=== PATIENT | male | born 1965 | race Caucasian/White ===

== ENCOUNTER 2018-06-04 09:19 | Day surgery (SDC) | payer OTHER ==
[2018-05-31 12:13] VITALS: BMI 35.2
[2018-06-04 09:49] VITALS: TEMP 98.2
[2018-06-04] MEDS: LACTATED RINGERS 1,000 ML IV SCH ×2 (09:52→10:46)
[2018-06-04] MEDS ORDERED: PROPOFOL 10 MG/ML 20 ML VIAL IV ONE (10:49)
[2018-06-04] MEDS ORDERED: LIDOCAINE 1% INJ 10MG/ML (20 ML MDV) ONE (10:49)
[2018-06-04 11:22] VITALS: RESP 18
--- NOTE | 2018-06-04 11:25 | P.PCN ---
Date of Procedure: 06/04/18 Procedure(s) Performed: Procedure: Total colonoscopy. Preoperative diagnosis: Screening for neoplasia, patient has history of polyps and family history of colon cancer. Postoperative diagnosis: Exam within normal limits. Preparation: HalfLytely prep. Sedation: Was provided by anesthesia. Brief clinical history: The patient is a 53-year-old male who is scheduled for this evaluation for screening for neoplasia because of history of polyps and family history of colon cancer in his father. His last colonoscopy was in November 2014 and at that time two tubulovillous adenomas were snared. The patient has no abdominal complaints, bleeding or anemia. Procedure: With the patient on his left lateral decubitus position and after informed consent and adequate sedation, the perianal area was inspected and it did not show any fissures or fistulas. There were no masses felt on digital rectal examination. The Olympus CFQ 160L video colonoscope was then inserted in the rectum in the usual fashion and advanced to the cecum. The mucosa appeared healthy. No polyps or tumors were seen or any obvious diverticular disease or other pathology. The patient tolerated the procedure well. Plan: The patient was reassured. He will follow up with you as planned and I recommended repeat exam in 5 years.
[2018-06-04 11:43] VITALS: BP 167/80; PULSE 83
== END 2018-06-04 11:53 | disposition home or self-care (01) ==
LOC: ORWHC2ENDO 09:19
DX: Z12.11 Encounter for screening for malignant neoplasm of colon (principal); Z86.010 Personal history of colon polyps; Z80.0 Family history of malignant neoplasm of digestive organs; G89.29 Other chronic pain; M54.9 Dorsalgia, unspecified; Z79.899 Other long term (current) drug therapy; Z88.5 Allergy status to narcotic agent
CPT/HCPCS: J2001; J2704; G0105; 45378

== ENCOUNTER 2019-03-21 02:30 | Emergency (ER) | payer OTHER ==
[2019-03-21] MEDS ORDERED: SODIUM CHLORIDE 0.9% 1,000 ML IV STA (02:58)
--- NOTE | 2019-03-21 04:34 | ED ---
General Adult HPI - General Source: patient, EMS, RN notes reviewed, old records reviewed Mode of arrival: EMS Limitations: no limitations <Carlos Alberto Rich - Last Filed: 03/21/19 04:33> <Jose Zheng - Last Filed: 03/21/19 06:13> - General Chief complaint: Overdose Stated complaint: Overdose Time Seen by Provider: 03/21/19 02:49 - History of Present Illness Initial comments: 53-year-old male patient presents to ED via EMS. reports that she came into the room to find patient on the ground, unresponsive, breathing. reports that she then called EMS and performed CPR patient for 15 minutes. Upon EMS arrival seen patient was administered Narcan, in which he became responsive, alert and oriented 3. Patient does admit to taking oral morphine. Denies any other complaints. Systemic: Pt denies fatigue, fever/chills, rash. Pt denies weakness, night sweats, weight loss. Neuro: Pt denies headache, visual disturbances, syncope or pre-syncope. HEENT: Pt denies ocular discharge or irritation, otalgia, rhinorrhea, pharyngitis or notable lymphadenopathy. Cardiopulmonary: Pt denies chest pain, SOB, heart palpitations, dyspnea on exertion. Abdominal/GI: Pt denies abdominal pain, n/v/d. : Pt denies dysuria, burning w/ urination, frequency/urgency. Denies new onset urinary or bowel incontinence. MSK: Pt denies myalgia, loss of strength or function in extremities. Neuro: Pt denies new onset weakness, paresthesias. (Carlos Alberto Rich) - Related Data Home Medications Medication Instructions Recorded Confirmed DULoxetine HCL [Cymbalta] 30 mg PO DAILY 05/31/18 06/04/18 Gabapentin [Neurontin] 600 mg PO BID 05/31/18 06/04/18 Glucosamine/Chondr Henriquez A Sod [Osteo 1 each PO DAILY 05/31/18 06/04/18 Bi-Flex Caplet] Allergies Allergy/AdvReac Type Severity Reaction Status Date / Time morphine [From Embeda] Allergy Rash/Hives Verified 06/04/18 09:46 naltrexone [From Embeda] Allergy Rash/Hives Verified 06/04/18 09:46 Review of Systems ROS Other: All systems not noted in ROS Statement are negative. <Carlos Alberto Rich - Last Filed: 03/21/19 04:33> ROS Other: All systems not noted in ROS Statement are negative. <Jose Zheng - Last Filed: 03/21/19 06:13> ROS Statement: Those systems with pertinent positive or pertinent negative responses have been documented in the HPI. Past Medical History Past Medical History: Musculoskeletal Disorder Additional Past Medical History / Comment(s): Chronic back pain r/t trauma, hx. colon polyps History of Any Multi-Drug Resistant Organisms: None Reported Past Surgical History: Orthopedic Surgery, Tonsillectomy Additional Past Surgical History / Comment(s): BILAT KNEE SX, colonoscopy,. REATTACHMENT OF LT INDEX FINGER Past Anesthesia/Blood Transfusion Reactions: No Reported Reaction Smoking Status: Former smoker - Past Family History Father Family Medical History: Cancer Additional Family Medical History / Comment(s): colon Mother Family Medical History: Cancer <Carlos Alberto Rich - Last Filed: 03/21/19 04:33> General Exam Limitations: no limitations <Carlos Alberto Rich - Last Filed: 03/21/19 04:33> - General Exam Comments Initial Comments: Constitutional: NAD, AOX3, Pt has pleasant affect. HEENT: NC/AT, trachea midline, neck supple, no lymphadenopathy. Posterior pharynx non erythematous, without exudates. External ears appear normal, without discharge. Mucous membranes moist. Eyes PERRLA, EOM intact. There is no scleral icterus. No pallor noted. Cardiopulmonary: RRR, no murmurs, rubs or gallops, no JVD noted. Lungs CTAB in anterior and posterior rosales. No peripheral edema. Abdominal exam: Abdomen soft and non-distended. Abdomen non-tender to palpation in all 4 quadrants. Bowel sounds active in LLQ. No hepatosplenomegaly. No ecchymosis Neuro: CN II-XII grossly intact. No nuchal rigidity. No raccon eyes, no priest sign, no hemotympanum. No cervical spinal tenderness. MSK: No posterior calf tenderness bilaterally, homans sign negative bilaterally. Posterior tibialis and radial pulse +2 bilaterally. Sensation intact in upper and lower extremities. Full active ROM in upper and lower extremities, 5/5 stregnth. (Carlos Alberto Rich) Course Vital Signs 03/21/19 03/21/1903/21/19 02:40 04:39 04:41 Temperature 98 F Pulse Rate 94 78 Respiratory 16 12 12 Rate Blood Pressure 104/63 107/49 O2 Sat by Pulse 95 88 L Oximetry Medical Decision Making <Carlos Alberto Rich - Last Filed: 03/21/19 04:33> <Jose Zheng - Last Filed: 03/21/19 06:13> - Medical Decision Making At this time patient is refusing all further evaluations. PT will be signed out to attending physician Dr. Brown. (Carlos Alberto Rich) I saw this patient in conjunction with the physician executive personal assistant. I performed independent history and physical exam. Agree with case management. (Jose Zheng) Disposition <Carlos Alberto Rich - Last Filed: 03/21/19 04:33> Is patient prescribed a controlled substance at d/c from ED?: No <Jose Zheng - Last Filed: 03/21/19 06:13> Clinical Impression: Drug overdose Disposition: HOME SELF-CARE Condition: Fair Instructions (If sedation given, give patient instructions): Prescription Opioid Overdose (ED) Referrals: Trever Bond DO [Primary Care Provider] - 1-2 days
[2019-03-21] MEDS ORDERED: NALOXONE 0.4 MG/ML 1 ML VIAL IV STA (04:35)
[2019-03-21 05:00] VITALS: TEMP 98
[2019-03-21 06:17] VITALS: BP 102/57; PULSE 81; RESP 20
== END 2019-03-21 06:15 | disposition home or self-care (01) ==
LOC: EC 02:30
DX: T40.2X1A Poisoning by other opioids, accidental (unintentional), initial encounter (principal); G89.29 Other chronic pain; Z87.891 Personal history of nicotine dependence; Z88.5 Allergy status to narcotic agent; Z88.8 Allergy status to other drugs, medicaments and biological substances; Z79.899 Other long term (current) drug therapy; Z53.20 Procedure and treatment not carried out because of patient's decision for unspecified reasons
CPT/HCPCS: 96374; 99284

== ENCOUNTER → 2020-06-09 | Outpatient (CLI) | payer OTHER ==
--- NOTE | 2020-06-09 12:03 | XR ---
EXAMINATION TYPE: XR lumbosacral spine min 4V DATE OF EXAM: 06/09/2020 CLINICAL HISTORY: Low back pain with bilateral sciatica. TECHNIQUE: Frontal, lateral, and oblique images of the lumbar spine are obtained. COMPARISON: None FINDINGS: There are 5 lumbar type vertebral bodies identified. The lumbar spine shows dextroconvex scoliosis centered at L3-L4 level. There is slight grade 1 retrolisthesis L4 on L5. Vertebral body he ights are maintained. Fairly moderate multilevel disc space narrowing with relative sparing of L4-L5 level. Endplate sclerosis L5-S1 level. Vacuum disc phenomenon L3-L4 level. Fairly moderate to severe multilevel anterior and lateral spurring greatest left L3-L4 and right L4-L5 levels along with the an terior L3-L4 level. Spine is straightened on the lateral images. Oblique images are within normal carr its. Lower lumbar facet arthropathy is present. Overlying soft tissue is unremarkable. IMPRESSION: As above.
== END | disposition home or self-care (01) ==
LOC: RADXRYALE 11:20
PROVIDERS: ATTEND Physician Assistant Medical
DX: M47.896 Other spondylosis, lumbar region (principal); M41.87 Other forms of scoliosis, lumbosacral region; M54.41 Lumbago with sciatica, right side; M54.42 Lumbago with sciatica, left side
CPT/HCPCS: 72110

== ENCOUNTER → 2020-07-07 | Outpatient (CLI) | payer OTHER | END | disposition home or self-care (01) | LOC: RADMRIMAIN 15:48 | PROVIDERS: ATTEND Physician Assistant Medical | DX: Z53.9 Procedure and treatment not carried out, unspecified reason (principal) ==

== ENCOUNTER → 2021-08-02 | Outpatient (CLI) | payer OTHER ==
--- NOTE | 2021-08-02 09:57 | XR ---
EXAMINATION TYPE: XR cervical spine comp DATE OF EXAM: 08/02/2021 CLINICAL HISTORY: pain COMPARISON: NONE TECHNIQUE: Frontal, lateral, oblique, swimmers, and open mouth view of the cervical spine are obtaine d. FINDINGS: The cervical spine is visualized in its entirety from C1 thru the top of T1 level. It is s atisfactory in alignment without evidence of acute fracture or dislocation. The pre-vertebral soft t issue appears within normal limits. Moderate multilevel degenerative disc space narrowing and spondyl osis. The C1-C2 articulation is unremarkable on the open mouth view. The oblique images are within n ormal limits. IMPRESSION: No acute fracture or dislocation is seen in the cervical spine.ICD 10 NO FRACTURE, INITI AL EVALUATION
== END | disposition home or self-care (01) ==
LOC: RADXRYALE 08:59
PROVIDERS: ATTEND Physician Assistant Medical
DX: M54.2 Cervicalgia (principal)
CPT/HCPCS: 72050

== ENCOUNTER → 2021-08-10 | Outpatient (CLI) | payer OTHER ==
--- NOTE | 2021-08-10 13:06 | US ---
EXAMINATION TYPE: US scrotum with doppler. Grayscale and color Doppler Duplex imaging performed of t he scrotum. DATE OF EXAM: 08/10/2021 COMPARISON: NONE CLINICAL HISTORY: R10.32 LLQ pain,[id number] Scrotal pain. Left groin and scrotal pain for 6 months. EXAM MEASUREMENTS: TESTICLES: Right Testicle: 3.8 x 1.8 x 2.6 cm Left Testicle: 4.0 x 1.6 x 2.7 cm EPIDIDYMIS HEAD: Right Epididymis: 1.3 x 0.7 x 1.1 cm Left Epididymis: 1.0 x 0.9 x 0.9 cm Doppler performed to assess for testicular vascularity; good bilateral color flow and waveforms are s een. Presence of hydroceles: No Presence of varicoceles: No Bilateral color comparison images towards beginning of study shows symmetric blood flow to both testi cles. IMPRESSION: Unremarkable study.
== END | disposition home or self-care (01) ==
LOC: RADUSWWP 11:54
PROVIDERS: ATTEND Family Medicine
DX: N50.82 Scrotal pain (principal); R10.32 Left lower quadrant pain
CPT/HCPCS: 76870; 93975

== ENCOUNTER → 2021-08-17 | Outpatient (CLI) | payer OTHER ==
--- NOTE | 2021-08-17 10:25 | US ---
EXAMINATION TYPE: US abdomen limited DATE OF EXAM: 08/17/2021 COMPARISON: 08/10/2021. CLINICAL HISTORY: 56-year-old male R10.30 Lower abdominal pain unspecified. TECHNIQUE: Multiple sonographic images of the left upper quadrant are obtained. FINDINGS: EXAM MEASUREMENTS: Spleen: 12.8 x 4.1 cm Left Kidney: 11.3 x 4.6 x 5.9 cm 1. Spleen: No definite abnormalities seen. 2. 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 IMPRESSION: Scanning of the left upper quadrant shows no splenomegaly or left-sided hydronephrosis. Additional sc anning along the left lower quadrant and left inguinal region shows no discrete sonographic abnormali ty.
== END | disposition home or self-care (01) ==
LOC: RADUSWWP 08:06
PROVIDERS: ATTEND Family Medicine
DX: R10.30 Lower abdominal pain, unspecified (principal)
CPT/HCPCS: 76705

== ENCOUNTER → 2021-10-15 | Outpatient (CLI) | payer OTHER ==
--- NOTE | 2021-10-15 13:04 | CT ---
EXAMINATION TYPE: CT lower extremity LT wo con DATE OF EXAM: 10/15/2021 COMPARISON: None HISTORY: Lt Hip pain CT DLP: 594.0 mGycm Automated exposure control for dose reduction was used. CT of the left hip was performed in the axial coronal and sagittal planes. FINDINGS: There is severe degenerative narrowing involving the left hip joint space with subchondral sclerosis seen. Subchondral cyst formation noted as well. There is heterotopic ossification seen adjacent to th e superior acetabulum. Small joint effusion noted. I do not see evidence for an acute fracture at thi s time. No destructive bony lesion is seen. IMPRESSION: RUSTY DEGENERATIVE CHANGES OF THE LEFT HIP.
== END | disposition home or self-care (01) ==
LOC: RADCTMAIN 12:03
PROVIDERS: ATTEND Family Medicine
DX: M16.12 Unilateral primary osteoarthritis, left hip (principal)

== ENCOUNTER → 2023-04-05 | Outpatient (CLI) | payer OTHER ==
--- NOTE | 2023-04-05 11:22 | XR ---
EXAMINATION TYPE: XR finger LT DATE OF EXAM: 04/05/2023 10:54 AM INDICATION: Patient age:Male; 57 years old; Reason for study: [id number] LT FINGER PAIN; [facility]. COMPARISON: None TECHNIQUE: Frontal and lateral views of the first digit of the left hand were obtained. FINDINGS: Normal alignment of the visualized joints. No acute osseous pathology is identified. No e vidence of soft tissue swelling. No significant degenerative changes. IMPRESSION: No acute osseous pathology.
== END | disposition home or self-care (01) ==
LOC: RADXRYALE 10:42
PROVIDERS: ATTEND Physician Assistant Medical
DX: M79.645 Pain in left finger(s) (principal)

== ENCOUNTER → 2024-05-13 | Outpatient (CLI) | payer OTHER ==
--- NOTE | 2024-05-13 11:41 | XR ---
EXAMINATION TYPE: XR ribs RT w pa chest xray DATE OF EXAM: 05/13/2024 COMPARISON: NONE HISTORY: Pain TECHNIQUE: Single view of the chest 4 views of the ribs are submitted. FINDINGS: The lungs are clear. No Evidence for pneumothorax. No evidence for focal contusion. Medi astinal structures are midline. Evaluation of the ribs fails to demonstrate evidence for displaced r ib fracture or secondary sign of rib fracture. Loose bodies about the right humerus. IMPRESSION: Negative study
--- NOTE | 2024-05-13 12:00 | XR ---
EXAMINATION TYPE: XR toes RT DATE OF EXAM: 05/13/2024 11:22 AM CLINICAL INDICATION: Male, 59 years old with history of [id number] RT TOE PAIN,INTERCOSTAL PAIN; [facility] COMPARISON: None TECHNIQUE: XR toes RT examined in the AP, oblique, projections. FINDINGS/IMPRESSION: 1. There may be a small hairline fracture of the fourth digit distal phalanx seen on oblique view on ly. 2. Mild multifocal degeneration changes throughout the joints of the foot.
== END | disposition home or self-care (01) ==
LOC: RADXRYALE 10:43
PROVIDERS: ATTEND Physician Assistant
DX: M19.071 Primary osteoarthritis, right ankle and foot (principal); R07.82 Intercostal pain